=== PATIENT | male | born 1990 | race Two or more races ===

== ENCOUNTER 2019-01-10 12:10 | Emergency (ER) | payer SELFPAY ==
[2019-01-10 12:25] VITALS: BP 135/69
[2019-01-10] MEDS ORDERED: KETOROLAC TROMETHAMINE 60 MG/2 ML SDV IM ONE (12:45)
--- NOTE | 2019-01-10 12:48 | ER Document Report ---
HPI - HPI Time Seen by Provider: 01/10/19 12:39 Pain Level: 5 Notes: Patient is a 28-year-old male who presents complaining of left knee pain that occurred while at work prior to arrival. Patient states that he started feeling a sharp pain when he was going down steps and then was pushing something heavy and had an intense sharp pain. He denies any trauma or other injury. Patient states that since then he has had a sharp pain to the right anterior knee and is worse when he tries to flex his knee. Patient states that his knee feels like it wants to give out on him. Denies drug allergies. No other concerns or complaints. He has not noticed any swelling, redness, or bruising. Denies any headache, fever, URI, sore throat, chest pain, palpitations, syncope, cough, shortness of breath, wheeze, dyspnea, abdominal pain, nausea/vomiting/diarrhea, urinary retention, dysuria, hematuria, loss of control of bowel or bladder, numbness/tingling, saddle anesthesia, muscle paralysis/weakness, or rash. - ROS Systems Reviewed and Negative: Yes All other systems reviewed and negative - CONSTITUTIONAL Constitutional: DENIES: Fever, Chills - MUSCULOSKELETAL Musculoskeletal: REPORTS: Extremity pain - L knee pain Past Medical History - Social History Smoking Status: Current Every Day Smoker Frequency of alcohol use: Social Drug Abuse: None Family History: Reviewed & Not Pertinent Patient has suicidal ideation: No Patient has homicidal ideation: No Renal/ Medical History: Denies: Hx Peritoneal Dialysis Past Surgical History: Reports: Hx Appendectomy, Hx Orthopedic Surgery - R hand Vertical Provider Document - CONSTITUTIONAL Agree With Documented VS: Yes Notes: PHYSICAL EXAMINATION: GENERAL: Well-appearing, well-nourished and in no acute distress. LUNGS: Breath sounds clear to auscultation bilaterally and equal. No wheezes rales or rhonchi. HEART: Regular rate and rhythm without murmurs, rubs, gallops. Musculoskeletal: Lt knee: No obvious swelling, ecchymosis, effusion, or deformity. LROM to passive/active and flexion due to pain. Strength 5+/5. N/V intact distal. + rt joint line tenderness. Ligamentous grossly stable, limited exam. Patellar grind negative. No calf tenderness. Extremities: No cyanosis, clubbing, or edema b/l. Peripheral pulses 2+. Capillary refill less than 3 seconds. Karlo neg b/l. NEUROLOGICAL: Normal speech, limping gait. Normal sensory, motor exams PSYCH: Normal mood, normal affect. SKIN: Warm, Dry, normal turgor, no rashes or lesions noted. - INFECTION CONTROL TRAVEL OUTSIDE OF THE [place] IN LAST 30 DAYS: No Course - Re-evaluation Re-evalutation: 01/10/19 12:[address] Marshall: no imaging warranted at this time. conservative mena ures as below. Patient is an afebrile, well-hydrated, 28-year-old female who presents to the ED with left knee pain which I suspect to have internal involvement, i.e. meniscus. Vitals are acceptable without any significant tachycardia, tachypnea, or hypoxia. PE is otherwise unremarkable for any neurovascular compromise, obvious tendon/ligament rupture, obvious fracture/dislocation, septic joint. Knee immobilizer and crutches were provided today. Toradol given IM. Patient is nontoxic-appearing. Patient is able to ambulate and weight-bear although he is limping. No other labs or imaging warranted at this time based on H&P. Conservative measures otherwise for symptoms. Recheck with your PCM in 3-5 days. Schedule consult with orthopedics. Return to the ED with any worsening/concerning symptoms otherwise as reviewed in discharge. Patient is in agreement. - Vital Signs Vital signs: Temp Pulse Resp BP Pulse Ox 98.1 F 76 20 135/69 H 94 01/10/19 12:23 01/10/19 12:23 01/10/19 12:23 01/10/19 12:23 01/10/19 12:23 Discharge - Discharge Clinical Impression: Left knee pain Qualifiers: Chronicity: acute Qualified Code(s): M25.562 - Pain in left knee Condition: Stable Disposition: HOME, SELF-CARE Instructions: Suspected Internal Knee Injury ([facility]) Additional Instructions: Rest, Ice, Compression, Elevation Tylenol/ibuprofen as needed Light stretches daily Strength exercises as able Moist heat and massage may help F/u with your PCP in 3-5 days for a recheck Call orthopedics today to schedule an appointment for further evaluation and management Return to the ED with any worsening symptoms and/or development of fever, headache, chest pain, palpitations, syncope, shortness of breath, trouble breathing, abdominal pain, n/v/d, muscle weakness/paralysis, numbness/tingling, swelling, redness, or other worsening symptoms that are concerning to you. Prescriptions: Naproxen 500 mg PO BID #20 tablet Forms: Elevated Blood Pressure, Smoking Cessation Education, Return to Work Referrals: [facility] [Provider Group] - Follow up as needed MIKE FARAH MD [ACTIVE PROVISIONAL STAFF] - Follow up in 3-5 days
== END 2019-01-10 13:10 | disposition home or self-care (01) ==
LOC: ER 12:10
DX: M25.562 Pain in left knee (principal); F17.200 Nicotine dependence, unspecified, uncomplicated
CPT/HCPCS: 99283; L1830

== ENCOUNTER 2019-04-23 12:12 | Emergency (ER) | payer SELFPAY ==
[2019-04-23] MEDS ORDERED: LIDOCAINE 1%/EPINEPHRINE INJ 20 ML VIAL INJ ONE (13:01)
[2019-04-23] MEDS ORDERED: SULFAMETHOXAZOLE/TRIMETHOPRIM 800-160 MG TABLET PO ONE (13:02)
[2019-04-23] MEDS ORDERED: HYDROCODONE/ACETAMINOPHEN 5-325 MG TABLET PO ONE (13:02)
[2019-04-23] MEDS ORDERED: CEPHALEXIN 500 MG CAPSULE PO ONE (13:02)
[2019-04-23] MEDS ORDERED: HYDROCODONE/ACETAMINOPHEN 5-325 MG (6 TAB/ER DISP) PO PRN (13:52)
--- NOTE | 2019-04-23 13:52 | ER Document Report ---
ED Skin Rash/Insect Bite/Abscs - General Chief Complaint: Abscess Stated Complaint: ABCESS ON RIGHT LEG Time Seen by Provider: 04/23/19 12:19 Notes: Patient is a 29-year-old male who presents the emergency department with a chief complaint of a possible abscess to his right inner thigh. Patient states that he noticed some redness to the area 3 days ago. Patient denies any fever, body aches, chills, or any other symptoms. Patient denies any past medical history. He does not take any medications. Patient is not diabetic. TRAVEL OUTSIDE OF THE [place] IN LAST 30 DAYS: No - Related Data Allergies/Adverse Reactions: No Known Allergies Allergy (Unverified 01/10/19 12:10) Past Medical History - Social History Smoking Status: Current Every Day Smoker Frequency of alcohol use: Social Drug Abuse: Marijuana Family History: Reviewed & Not Pertinent Patient has suicidal ideation: No Patient has homicidal ideation: No Renal/ Medical History: Denies: Hx Peritoneal Dialysis Past Surgical History: Reports: Hx Appendectomy, Hx Orthopedic Surgery - R hand Review of Systems - Review of Systems Notes: REVIEW OF SYSTEMS: CONSTITUTIONAL : Denies recent illness. Denies recent unintentional weight loss. Denies fever, chills, or sweats. EENT: Denies eye, ear, throat, or mouth pain, discharge, or symptoms. Denies nasal or sinus congestion. CARDIOVASCULAR: Denies chest pain. RESPIRATORY: Denies shortness of breath, cough, congestion, difficulty breathin g, or wheezing. GASTROINTESTINAL: Denies nausea, vomiting, and diarrhea. Denies abdominal pain. Denies constipation. GENITOURINARY: Denies difficulty urinating, burning, blood in urine, urgency or frequency. MUSCULOSKELETAL: Denies neck and back pain. Denies joint pain or swelling. SKIN: See HPI. HEMATOLOGIC : Denies easy bruising or bleeding. LYMPHATIC: Denies swollen, painful, enlarged glands. NEUROLOGICAL: Denies no numbness or tingling denies weakness. Denies headache. Denies altered mental status. Denies alteration in speech. PSYCHIATRIC: Denies stress, anxiety, alteration in sleep patterns, or depression. All other systems reviewed and negative. Physical Exam - Vital signs Vitals: Temp Pulse BP Pulse Ox 98.0 F 85 130/77 H 99 04/23/19 12:17 04/23/19 12:17 04/23/19 12:17 04/23/19 12:17 - Notes Notes: PHYSICAL EXAMINATION: GENERAL: Appears well, healthy, well-nourished, no acute distress. HEAD: Normocephalic, atraumatic. EYES: PERRL, conjunctiva normal, all extraocular movements intact, sclera nonicteric ENT: Moist mucous membranes. NECK: Supple, no noticeable swelling, redness, rash. Normal range of motion. LUNGS: Equal breath sounds bilaterally and clear to auscultation. No wheezes rales or rhonchi. CARDIOVASCULAR: S1-S2, regular rate, regular rhythm. Radial pulses 2+, normal. ABDOMEN: Normoactive bowel sounds. Soft, nontender, no guarding, no rebound tenderness, and no masses palpated. EXTREMITIES: Normal strength and range of motion, no pitting or edema. No cyanosis. NEUROLOGICAL: Moves all extremities upon command. Strength 5/5 in all extremities. PSYCH: Normal mood, normal affect. SKIN: Warm, dry. Abscess noted to right medial thigh with surrounding cellulitis. Normal skin turgor. Course - Re-evaluation Re-evalutation: 04/23/19 Differential diagnosis includes but normal limited to: abscess, dermoid cyst, sebaceous cyst, furnucle, or others. Based on patient's physical exam and history, this is an abscess. It was drained in the ER. Packing was placed. There is surrounding cellulitis. I do not believe the patient has underlying necrotizing fasciitis. Based on patient's physical exam and these factors, they will be treated with antibiotics. Patient is instructed to follow-up with the emergency department in 2 days. Educated the patient about proper dressing changes. Strict follow- up precautions were given. Follow-up precautions were given. Verbal discharge instructions were given to the patient. They verbalized understanding. They are stable for discharge. - Vital Signs Vital signs: Temp Pulse Resp BP Pulse Ox 98.2 F 71 16 147/82 H 98 04/23/19 14:10 04/23/19 14:10 04/23/19 12:18 04/23/19 14:10 04/23/19 14:10 Discharge - Discharge Clinical Impression: Abscess Condition: Stable Disposition: HOME, SELF-CARE Instructions: Cephalexin ([facility]), Oral Narcotic Medication ([facility]), Post Incision and Drainage, Trimethoprim-Sulfa ([facility]) Additional Instructions: You were seen for an abscess that required drainage. Dress the area twice a day and when soiled. Return in 48 hours for a wound recheck. Please take your antibiotics as prescribed. Please return if you develop fever, vomiting, the pain at the site worsens, you notice spreading redness from the area, or you have any other symptoms that are concerning to you. You are also being sent home with a medication called Dodson, medication for pain. You can take 1 tablet every 4-6 hours as needed. Please use the sparingly. Please also take ibuprofen 600 mg every 6 hours for swelling. Prescriptions: Sulfamethoxazole/Trimethoprim [Bactrim 400-80 mg Tablet] 1 each PO BID #14 tablet Cephalexin Monohydrate [Keflex 500 mg Capsule] 500 mg PO QID #28 capsule Forms: Return to Work
[2019-04-23 14:10] VITALS: BP 147/82
== END 2019-04-23 14:11 | disposition home or self-care (01) ==
LOC: ER 12:12
DX: L02.415 Cutaneous abscess of right lower limb (principal); F17.200 Nicotine dependence, unspecified, uncomplicated
CPT/HCPCS: 99283; A6266; J3490

== ENCOUNTER 2019-04-25 13:18 | Emergency (ER) | payer SELFPAY ==
[2019-04-25 13:26] VITALS: BP 144/85
--- NOTE | 2019-04-25 14:33 | ER Document Report ---
HPI - HPI Time Seen by Provider: 04/25/19 13:23 Pain Level: Denies Context: Patient is a 29-year-old male who presents to the emergency department for a wound recheck. I did his I&D to his right inner thigh 2 days ago. Patient denies any fever, body aches, chills, or any other symptoms. Patient states that he is feeling much better now that he had the I&D. Denies any pain. - ROS Systems Reviewed and Negative: Yes All other systems reviewed and negative - CONSTITUTIONAL Constitutional: DENIES: Fever, Chills - REPRODUCTIVE Reproductive: DENIES: : - MUSCULOSKELETAL Musculoskeletal: DENIES: Swelling - DERM Skin Problems: Surgical Incision - right medial thigh from I&D 2 days ago. Past Medical History - Social History Smoking Status: Current Every Day Smoker Frequency of alcohol use: Social Drug Abuse: Marijuana Family History: Reviewed & Not Pertinent Patient has suicidal ideation: No Patient has homicidal ideation: No Renal/ Medical History: Denies: Hx Peritoneal Dialysis Past Surgical History: Reports: Hx Appendectomy, Hx Orthopedic Surgery - R hand Vertical Provider Document - CONSTITUTIONAL Agree With Documented VS: Yes Exam Limitations: No Limitations General Appearance: No Apparent Distress - INFECTION CONTROL TRAVEL OUTSIDE OF THE [place] IN LAST 30 DAYS: No - HEENT HEENT: Atraumatic, Normocephalic, PERRLA - RESPIRATORY Respiratory: No Respiratory Distress - CARDIOVASCULAR Cardiovascular: Regular Rhythm Pulses: Normal: Radial - MUSCULOSKELETAL/EXTREMETIES Musculoskeletal/Extremeties: FROM, No Edema - NEURO Level of Consciousness: Awake, Alert, Appropriate Motor/Sensory: No Motor Deficit, No Sensory Deficit - DERM Integumentary: Warm, Dry, Laceration - surgical incision from 2 days ago Course - Re-evaluation Re-evalutation: 04/25/19 14:32 Packing was removed here in the emergency department by myself. I recovered the wound. The erythema from the cellulitis has improved. No extra packing needed. Patient will continue his antibiotics. Follow-up precautions were given. Verbal discharge instructions were given to the patient. They verbalized understanding. They are stable for discharge. - Vital Signs Vital signs: Temp Pulse Resp BP Pulse Ox 97.8 F 69 18 144/85 H 98 04/25/19 13:24 04/25/19 13:24 04/25/19 13:24 04/25/19 13:24 04/25/19 13:24 Discharge - Discharge Clinical Impression: Encounter for wound re-check Condition: Stable Disposition: HOME, SELF-CARE Additional Instructions: You were seen today in the emergency department for a wound recheck. It is healing well. Please continue your antibiotics. Please keep the area clean and dry. Apply dressings as needed for any drainage. If you have worsening symptoms, develop a fever, or have any symptoms that are worrisome to you, please return to the emergency department. Forms: Return to Work
== END 2019-04-25 14:45 | disposition home or self-care (01) ==
LOC: ER 13:18
DX: L02.416 Cutaneous abscess of left lower limb (principal); F17.200 Nicotine dependence, unspecified, uncomplicated
CPT/HCPCS: 99282

== ENCOUNTER 2019-07-05 10:31 | Emergency (ER) | payer SELFPAY ==
[2019-07-05] MEDS ORDERED: ONDANSETRON HCL INJ/PF 4 MG/2 ML SDV IV ONE (11:11)
[2019-07-05] MEDS ORDERED: NORMAL SALINE 1000 ML 1,000 ML IV ONE (11:11)
[2019-07-05] MEDS ORDERED: KETOROLAC TROMETHAMINE INJ/PF 30 MG/1 ML SDV IV ONE (11:11)
--- NOTE | 2019-07-05 11:12 | ER Document Report ---
ED Medical Screen (RME) - General Chief Complaint: Headache Stated Complaint: HEADACHE,VOMITING,NOSE BLEED Time Seen by Provider: 07/05/19 11:07 TRAVEL OUTSIDE OF THE [place] IN LAST 30 DAYS: No - HPI Notes: 07/05/19 11:23 29-year-old male to the emergency department with complaints of left-sided headache that began this morning. He states that it was pounding headache behind his eye and that he had associated photophobia, phonophobia. He states that he once after the headache began. He states he has a history of migraines and this is similar. He states that his employer wanted him to come to the emergency department to be evaluated. He states the headache is come down some but is still present. He states that he still continues to have nausea. He denies any other focal neurological deficits. He denies any fevers or chills. He does admit that he has nasal congestion and the nasal congestion is chronic for him. I performed a brief medical screening exam on the patient determined that he will need further evaluation by main side provider. I have placed initial orders to help expedite his care. - Related Data Allergies/Adverse Reactions: No Known Allergies Allergy (Verified 07/05/19 11:03) Past Medical History - Social History Chew tobacco use (# tins/day): No Frequency of alcohol use: Occasional Drug Abuse: None Renal/ Medical History: Denies: Hx Peritoneal Dialysis Past Surgical History: Reports: Hx Appendectomy, Hx Orthopedic Surgery - R hand Physical Exam - Vital signs Vitals: Temp Pulse Resp BP Pulse Ox 97.6 F 57 L 16 137/75 H 98 07/05/19 10:34 07/05/19 10:34 07/05/19 10:34 07/05/19 10:34 07/05/19 10:34 Course - Vital Signs Vital signs: Temp Pulse Resp BP Pulse Ox 97.6 F 57 L 16 137/75 H 98 07/05/19 10:34 07/05/19 10:34 07/05/19 10:34 07/05/19 10:34 07/05/19 10:34
--- NOTE | 2019-07-05 12:52 | ER Document Report ---
ED Headache - General Chief Complaint: Headache Stated Complaint: HEADACHE,VOMITING,NOSE BLEED Time Seen by Provider: 07/05/19 11:07 Primary Care Provider: ALEXI MCKINNEY MD [EMERITUS] - Follow up in 1 week TRAVEL OUTSIDE OF THE [place] IN LAST 30 DAYS: No - HPI Notes: 29-year-old male to the emergency department with complaints of left-sided headache that started today while at work with associated photophobia and phonophobia. He has also had episodes of nausea and vomiting since the headache started. He states that he is gotten a headache like this before. He was at work when it started and his boss made him leaving come here for further evaluation. He has not taken anything for this headache. He states usually when this happens he drinks a lot of water will turn off the lights and rest until goes away. He has not seen a headache specialist for this. He denies any neck pain, fevers, chills, cough, chest pain, shortness of breath. He denies any focal neurological weakness. He denies any speech problems. This is not the worst headache of his life. - Related Data Allergies/Adverse Reactions: No Known Allergies Allergy (Verified 07/05/19 11:03) Past Medical History - Social History Smoking Status: Current Every Day Smoker Chew tobacco use (# tins/day): No Frequency of alcohol use: Occasional Drug Abuse: None Family History: Reviewed & Not Pertinent Patient has suicidal ideation: No Patient has homicidal ideation: No Renal/ Medical History: Denies: Hx Peritoneal Dialysis Past Surgical History: Reports: Hx Appendectomy, Hx Orthopedic Surgery - R hand Review of Systems - Review of Systems Constitutional: denies: Chills, Fever EENT: Other - + photophobia Cardiovascular: denies: Chest pain, Palpitations, Dizziness, Lightheaded Gastrointestinal: denies: Abdominal pain, Diarrhea, Nausea, Vomiting Genitourinary: No symptoms reported Musculoskeletal: No symptoms reported. denies: Neck pain Skin: No symptoms reported Neurological/Psychological: Headaches. denies: Weakness, Gait changes, Lost consciousness, Speech impairment, Numbness, Tingling -: Yes All other systems reviewed and negative Physical Exam - Vital signs Vitals: Temp Pulse Resp BP Pulse Ox 97.6 F 57 L 16 137/75 H 98 07/05/19 10:34 07/05/19 10:34 07/05/19 10:34 07/05/19 10:34 07/05/19 10:34 Interpretation: Normal - General General appearance: Appears well, Alert - HEENT Head: Normocephalic, Atraumatic Eyes: Normal Pupils: PERRL Fundascopic: Normal Ears: Normal External canal: Normal Tympanic membrane: Normal Sinus: Normal Nasal: Normal Mouth/Lips: Normal Mucous membranes: Normal Pharynx: Normal. No: Uvular edema, Potential airway comprom. Neck: Normal, Supple. No: Lymphadenopathy, Meningismus - Respiratory Respiratory status: No respiratory distress Chest status: Nontender Breath sounds: Normal. No: Rales, Rhonchi, Wheezing Chest palpation: Normal - Cardiovascular Rhythm: Regular Heart sounds: Normal auscultation Murmur: No - Abdominal Inspection: Normal Distension: No distension Bowel sounds: Normal Tenderness: Nontender. No: Tender, McBurney's point, Torrez's sign, Guarding, Rebound Organomegaly: No organomegaly - Back Back: Normal, Nontender - Neurological Neuro grossly intact: Yes Cognition: Normal Orientation: AAOx4 [place] Coma Scale Eye Opening: Spontaneous [place] Coma Scale Verbal: Oriented [place] Coma Scale Motor: Obeys Commands [place] Coma Scale Total: 15 Speech: Normal Cranial nerves: Normal. No: Facial palsy, Forehead sparing, Gaze palsy, Sensory deficit, Tongue deviation Cerebellar coordination: Normal. 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 No: Pronator drift Sensory: Normal - Psychological Associated symptoms: Normal affect, Normal mood - Skin Skin Temperature: Warm Skin Moisture: Dry Skin Color: Normal Course - Re-evaluation Re-evalutation: Impression: Headache. Patient is much better after fluids and medicine. He states his headache is completely gone. Will discharge home. Encouraged to follow-up with neurologist for headache specialist. Patient agrees with the plan. Gave strict return precautions. - Vital Signs Vital signs: Temp Pulse Resp BP Pulse Ox 97.7 F 50 L 18 132/75 H 99 07/05/19 13:06 07/05/19 13:06 07/05/19 13:06 07/05/19 13:06 07/05/19 13:06 Discharge - Discharge Clinical Impression: Headache Qualifiers: Headache type: unspecified Headache chronicity pattern: acute headache Intractability: not intractable Qualified Code(s): R51 - Headache Nausea & vomiting Qualifiers: Vomiting type: unspecified Vomiting Intractability: non-intractable Qualified Code(s): R11.2 - Nausea with vomiting, unspecified Condition: Stable Disposition: HOME, SELF-CARE Instructions: Headache ([facility]) Additional Instructions: Push fluids. Return if worsening symptoms. Follow-up with neurologist. Take medicine as prescribed. Prescriptions: Ondansetron [Zofran Odt 4 mg Tablet] 1 - 2 tab PO Q4HP PRN #10 tab.rapdis PRN Reason: Butalb/Acetaminophen/Caffeine [Fioricet (50-325-40 mg) Tablet] 1 tab PO Q6H PRN #15 tab PRN Reason: Forms: Return to Work Referrals: ALEXI MCKINNEY MD [EMERITUS] - Follow up in 1 week
[2019-07-05 13:10] VITALS: BP 132/75
== END 2019-07-05 13:06 | disposition home or self-care (01) ==
LOC: ER 10:31
DX: R51 Headache (principal); R11.2 Nausea with vomiting, unspecified; H53.149 Visual discomfort, unspecified; F17.200 Nicotine dependence, unspecified, uncomplicated
CPT/HCPCS: 99283; 96361; 96374; 96375; J1885; J2405; J7030

== ENCOUNTER 2019-11-05 19:12 | Emergency (ER) | payer SELFPAY ==
[2019-11-05] MEDS ORDERED: KETOROLAC TROMETHAMINE 60 MG/2 ML SDV IM ONE (19:26)
--- NOTE | 2019-11-05 19:28 | ER Document Report ---
ED Medical Screen (RME) - General Stated Complaint: FALL/PAIN OF TAILBONE Time Seen by Provider: 11/05/19 19:23 Mode of Arrival: Wheelchair Information source: Patient Notes: Patient is an otherwise healthy 29-year-old male presenting to the emergency department chief complaint of low back pain. Patient reports 3 days ago he fell backwards striking his tailbone against the wall corner. He states he has pain but it has worsened over the last 24 hours. He denies any other illness but has a fever of 101 in the triage area. He denies any saddle anesthesia, loss of control of bowel or bladder, and denies any urinary retention. Patient reports he is unable to perform ADLs. Tenderness to palpation along the midline in the lumbar region radiating over to the left side. I have greeted and performed a rapid initial assessment of this patient. A comprehensive ED assessment and evaluation of the patient, analysis of test results and completion of the medical decision making process will be conducted by additional ED providers. I have specifically instructed the patient or family members with the patient to immediately return to any nursing staff should anything change in the patient's condition or with their chief complaint. TRAVEL OUTSIDE OF THE [place] IN LAST 30 DAYS: No - Related Data Allergies/Adverse Reactions: No Known Allergies Allergy (Verified 07/05/19 11:03) Past Medical History Renal/ Medical History: Denies: Hx Peritoneal Dialysis Past Surgical History: Reports: Hx Appendectomy, Hx Orthopedic Surgery - R hand
--- NOTE | 2019-11-05 20:07 | ER Document Report ---
ED Fall - General Chief Complaint: Fall Stated Complaint: FALL/PAIN OF TAILBONE Time Seen by Provider: 11/05/19 19:23 Mode of Arrival: Wheelchair Information source: Patient TRAVEL OUTSIDE OF THE [place] IN LAST 30 DAYS: No - HPI Notes: Patient states that approximately 3 days ago he was carrying a couch and walking backwards. He states he tripped and fell and hit his tailbone on the corner. Since that time he has had progressively increasing severe pain in the tailbone. It is worse with movement and better with rest. It is constant. He denies any other injuries in the fall. It is a sharp pain that radiates up his back. No problems with urination or defecation other than pain. - Related data Allergies/Adverse Reactions: No Known Allergies Allergy (Verified 07/05/19 11:03) Past Medical History - General Information source: Patient - Social History Smoking Status: Current Every Day Smoker Frequency of alcohol use: None Drug Abuse: Marijuana Family History: Reviewed & Not Pertinent Patient has homicidal ideation: No Renal/ Medical History: Denies: Hx Peritoneal Dialysis Past Surgical History: Reports: Hx Appendectomy, Hx Orthopedic Surgery - R hand Review of Systems - Review of Systems Constitutional: denies: Chills, Fever Cardiovascular: denies: Chest pain, Palpitations Respiratory: denies: Cough, Short of breath -: Yes All other systems reviewed and negative Physical Exam - Vital signs Vitals: Temp Pulse Resp BP Pulse Ox 101 F H 86 18 137/72 H 98 11/05/19 19:21 11/05/19 19:21 11/05/19 19:21 11/05/19 19:21 11/05/19 19:21 Interpretation: Normal - General General appearance: Appears well, Alert - HEENT Head: Normocephalic, Atraumatic Eyes: Normal Pupils: PERRL - Respiratory Respiratory status: No respiratory distress Chest status: Nontender Breath sounds: Normal Chest palpation: Normal - Cardiovascular Rhythm: Regular Heart sounds: Normal auscultation Murmur: No - Abdominal Inspection: Normal Distension: No distension Bowel sounds: Normal Tenderness: Nontender Organomegaly: No organomegaly - Back Back: Normal, Tender - Patient has exquisite tenderness over the coccyx. - Extremities General upper extremity: Normal inspection, Nontender, Normal color, Normal ROM, Normal temperature General lower extremity: Normal inspection, Nontender, Normal color, Normal ROM, Normal temperature, Normal weight bearing. No: Karlo's sign - Neurological Neuro grossly intact: Yes Cognition: Normal Orientation: AAOx4 [place] Coma Scale Eye Opening: Spontaneous [place] Coma Scale Verbal: Oriented [place] Coma Scale Motor: Obeys Commands [place] Coma Scale Total: 15 Speech: Normal Motor strength normal: LUE, RUE, LLE, RLE Sensory: Normal - Psychological Associated symptoms: Normal affect, Normal mood - Skin Skin Temperature: Warm Skin Moisture: Dry Skin Color: Normal Course - Re-evaluation Re-evalutation: 11/05/19 22:20 Patient initially presented for complaints of tailbone pain. It was noticed at triage that his fever was 101. However patient has no known covert exposures. He has had no symptoms of illness. He denies any type of pain anywhere. He says he has had no cough or shortness of breath and he has not felt that he has had a fever. I then recheck the patient's temperature and it was 99.3. I think the first temperature was erroneous. As for patient's tailbone pain he does appear to have a minor nondisplaced fracture of the coccyx. I will discharge patient home with pain medicine and instructions about using a doughnut. - Vital Signs Vital signs: Temp Pulse Resp BP Pulse Ox 99.3 F 86 18 137/72 H 98 11/05/19 20:10 11/05/19 19:21 11/05/19 19:21 11/05/19 19:21 11/05/19 19:21 - Diagnostic Test Radiology reviewed: Image reviewed, Reports reviewed Discharge - Discharge Clinical Impression: Coccyx contusion Qualifiers: Encounter type: initial encounter Qualified Code(s): S30.0XXA - Contusion of lower back and pelvis, initial encounter Condition: Stable Disposition: HOME, SELF-CARE Instructions: Coccyx Injury ([facility]) Additional Instructions: buy a doughnut at the pharmacy to sit on Prescriptions: Hydrocodone/Acetaminophen [[facility] 5-325 mg Tablet] 1 tab PO Q6 PRN 3 Days #12 tablet PRN Reason: Forms: Return to Work Referrals: MIKE FARAH MD [ACTIVE PROVISIONAL STAFF] - Follow up as needed
--- NOTE | 2019-11-05 20:19 | RADIOLOGY REPORT (SQ) ---
CT LUMBAR SPINE WITHOUT IV CONTRAST HISTORY: Low back pain/fever s/p fall . COMPARISON: None. TECHNIQUE: CT scan of the lumbar spine was performed without IV contrast. This exam was performed according to our departmental dose-optimization program, which includes automated exposure control, adjustment of the mA and/or kV according to patient size and/or use of iterative reconstruction technique. FINDINGS: No acute compression fracture is seen. The lumbar alignment is maintained. The disc spaces are preserved. No advanced canal stenosis is identified. The sacroiliac joints are intact. IMPRESSION: No acute findings in the lumbar spine.
--- NOTE | 2019-11-05 22:21 | RADIOLOGY REPORT (SQ) ---
EXAM DESCRIPTION: XR SACRUM COCCYX 2 OR MORE VIEWS COMPLETED DATE/TME: 11/05/2019 20:55 CLINICAL HISTORY: 29 years, Male, fall/pain COMPARISON: None. NUMBER OF VIEWS: TECHNIQUE: LIMITATIONS: None. FINDINGS: No fracture or dislocation. Mineralization of bone appears normal. IMPRESSION: No fracture or dislocation. copyright 2010 [employer]- All Rights Reserved
[2019-11-05 22:48] VITALS: BP 126/78
== END 2019-11-05 22:48 | disposition home or self-care (01) ==
LOC: ER 19:12
DX: S30.0XXA Contusion of lower back and pelvis, initial encounter (principal); W19.XXXA Unspecified fall, initial encounter; Y93.89 Activity, other specified; F17.200 Nicotine dependence, unspecified, uncomplicated; F12.10 Cannabis abuse, uncomplicated
CPT/HCPCS: 99284; 96372; 72220; 72131; J1885

== ENCOUNTER 2020-01-31 00:37 | Emergency (ER) | payer SELFPAY ==
[2020-01-31] MEDS ORDERED: NORMAL SALINE 1000 ML 1,000 ML IV ONE (06:26)
[2020-01-31] MEDS ORDERED: ONDANSETRON 4 MG TAB.RAPDIS PO ONE (06:26)
[2020-01-31] MEDS ORDERED: KETOROLAC TROMETHAMINE INJ/PF 30 MG/1 ML SDV IV ONE (06:26)
--- NOTE | 2020-01-31 07:01 | ER Document Report ---
ED General - General Chief Complaint: Headache Stated Complaint: HEADACHE,NAUSEA Time Seen by Provider: 01/31/20 05:59 Mode of Arrival: Ambulatory Information source: Patient TRAVEL OUTSIDE OF THE [place] IN LAST 30 DAYS: No - HPI Notes: Patient presents with headache. He states that when he went to bed last night he felt fine. He states he woke up approximately at midnight with bilateral throbbing temporal pain. The pain radiated throughout his head. Nothing made it better or worse. It was constant. He states when he arrived here he had an episode of vomiting and now he feels significantly better although he still has some mild pain. He states he is had some mild congestion but no real cough or cold. No diarrhea. No rashes. No known tick bites. No known covert virus exposures. 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 He denies any history of similar previous episodes. - Related Data Allergies/Adverse Reactions: No Known Allergies Allergy (Verified 07/05/19 11:03) Past Medical History - General Information source: Patient - Social History Smoking Status: Current Every Day Smoker Chew tobacco use (# tins/day): No Frequency of alcohol use: Occasional Drug Abuse: None Family History: Reviewed & Not Pertinent Renal/ Medical History: Denies: Hx Peritoneal Dialysis Past Surgical History: Reports: Hx Appendectomy, Hx Orthopedic Surgery - R hand Review of Systems - Review of Systems Constitutional: denies: Diaphoresis, Recent illness Cardiovascular: denies: Chest pain, Palpitations Respiratory: denies: Cough, Short of breath -: Yes All other systems reviewed and negative Physical Exam - Vital signs Vitals: Temp Pulse Resp BP Pulse Ox 97.9 F 60 18 148/85 H 98 01/31/20 02:04 01/31/20 02:04 01/31/20 02:04 01/31/20 02:04 01/31/20 02:04 Interpretation: Hypertensive - General General appearance: Appears well, Alert - HEENT Head: Normocephalic, Atraumatic Eyes: Normal Pupils: PERRL - Respiratory Respiratory status: No respiratory distress Chest status: Nontender Breath sounds: Normal Chest palpation: Normal - Cardiovascular Rhythm: Regular Heart sounds: Normal auscultation Murmur: No - Abdominal Inspection: Normal Distension: No distension Bowel sounds: Normal Tenderness: Nontender Organomegaly: No organomegaly - Back Back: Normal, Nontender - Extremities General upper extremity: Normal inspection, Nontender, Normal color, Normal ROM, Normal temperature General lower extremity: Normal inspection, Nontender, Normal color, Normal ROM, Normal temperature, Normal weight bearing. No: Karlo's sign - Neurological Neuro grossly intact: Yes Cognition: Normal Orientation: AAOx4 [place] Coma Scale Eye Opening: Spontaneous [place] Coma Scale Verbal: Oriented [place] Coma Scale Motor: Obeys Commands [place] Coma Scale Total: 15 Speech: Normal Cranial nerves: Normal. No: Facial palsy, Gaze palsy Cerebellar coordination: Normal. 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 No: Pronator drift Sensory: Normal - Psychological Associated symptoms: Normal affect, Normal mood - Skin Skin Temperature: Warm Skin Moisture: Dry Skin Color: Normal Course - Re-evaluation Re-evalutation: 01/31/20 08:57 Patient presented with a headache that woke him from sleep. He states after he vomited he feels better. He has no meningeal signs. The head CT is unremarkable. Would seem unlikely given the symptoms that he told me that this would be a manifestation of a sentinel hemorrhage. Possibly patient has a tickborne disease and he has been tested for this. He may also have COVID and t his is been tested as well. I will recommend the patient that he is quarantined until results of his testing have returned. At this time patient has no deficits stable vital signs and I believe station is stable for discharge. - Vital Signs Vital signs: Temp Pulse Resp BP Pulse Ox 98.0 F 61 14 112/86 H 100 01/31/20 06:00 01/31/20 04:50 01/31/20 09:01 01/31/20 09:01 01/31/20 09:01 - Laboratory Result Diagrams: 01/31/20 06:35 01/31/20 06:35 Laboratory results interpreted by me: 01/31/20 06:35 Glucose 118 H ALT 81 H - Diagnostic Test Radiology reviewed: Image reviewed, Reports reviewed Discharge - Discharge Clinical Impression: Headache Qualifiers: Headache type: unspecified Headache chronicity pattern: acute headache Intractability: not intractable Qualified Code(s): R51 - Headache Condition: Stable Disposition: HOME, SELF-CARE Instructions: Headache ([facility]), Pain Medication Injection ([facility]), Antinausea Medication ([facility]), COVID-19 Guidance for Persons Under Investigation Additional Instructions: Please call your primary care physician as soon as possible to arrange follow- up. Please quarantine until the results of your COVID test have returned in 2 to 3 days. Prescriptions: Butalb/Acetaminophen/Caffeine [Fioricet 50-300-40 mg Capsule] 1 cap PO Q6 PRN 3 Days #12 cap PRN Reason: For Pain Ondansetron [Zofran Odt 4 mg Tablet] 1 - 2 tab PO Q4H PRN #15 tab.rapdis PRN Reason: For Nausea/Vomiting Forms: Return to Work Referrals: [facility] [Provider Group] - Follow up in 3-5 days
[2020-01-31 07:35] LABS: ALBUMIN 4.9 g/dL (3.5-5.0); ALKALINE PHOSPHATASE 45 U/L (38-126); ANION GAP 8 (5-19); ASPARTATE AMINO TRANSFERASE 48 U/L (17-59); BILIRUBIN,DIRECT 0.2 mg/dL (0.0-0.4); BILIRUBIN,TOTAL 0.7 mg/dL (0.2-1.3); BLOOD UREA NITROGEN 17 mg/dL (7-20); CALCIUM 9.9 mg/dL (8.4-10.2); CARBON DIOXIDE 26 mmol/L (22-30); CHLORIDE 106 mmol/L (98-107); GLUCOSE 118 mg/dL (75-110); POTASSIUM 4.5 mmol/L (3.6-5.0); TOTAL PROTEIN 7.5 g/dL (6.3-8.2)
[2020-01-31 07:56] LABS: ABSOLUTE EOSINOPHILS # (AUTO) 0.3 10^3/uL (0.0-0.6); ABSOLUTE LYMPHOCYTES (AUTO) 1.7 10^3/uL (0.5-4.7); ABSOLUTE MONOCYTES (AUTO) 0.5 10^3/uL (0.1-1.4); ABSOLUTE NEUT (AUTO) 3.8 10^3/uL (1.7-8.2); BASOPHILS % (AUTO) 0.6 % (0-2); EOSINOPHILS % (AUTO) 4.1 % (0-6); HEMATOCRIT 46.6 % (37.9-51.0); HEMOGLOBIN 16.1 g/dL (13.5-17.0); LYMPHOCYTES % (AUTO) 27.1 % (13-45); MEAN CORPUSCULAR HEMOGLOBIN 29.7 pg (27.0-33.4); MEAN CORPUSCULAR HGB CONC 34.6 g/dL (32.0-36.0); MEAN CORPUSCULAR VOLUME 86 fl (80-97); MONOCYTES % (AUTO) 8.2 % (3-13); PLATELET COUNT 181 10^3/uL (150-450); RED BLOOD COUNT 5.42 10^6/uL (4.35-5.55); RED CELL DISTRIBUTION WIDTH 13.8 % (11.5-14.0); TOTAL CELLS COUNTED % (AUTO) 100 %; WHITE BLOOD COUNT 6.3 10^3/uL (4.0-10.5)
--- NOTE | 2020-01-31 08:19 | RADIOLOGY REPORT (SQ) ---
EXAM DESCRIPTION: CT HEAD WITHOUT IMAGES COMPLETED DATE/TIME: 01/31/2020 8:11 am REASON FOR STUDY: huerta COMPARISON: None. TECHNIQUE: Axial images acquired through the brain without intravenous contrast. Images reviewed wi th bone, brain and subdural windows. Additional sagittal and coronal reconstructions were generated. Images stored on PACS. All CT scanners at this facility use dose modulation, iterative reconstruction, and/or weight based d osing when appropriate to reduce radiation dose to as low as reasonably achievable (ALARA). [facility]: Dose Right [facility]: CareDose [facility]: Dose Right [facility]: Teradose 4D [facility]: [employer] RADIATION DOSE: CT Rad equipment meets quality standard of care and radiation dose reduction techniq ues were employed. CTDIvol: 53.2 mGy. DLP: 1017 mGy-cm. mGy. LIMITATIONS: None. FINDINGS: VENTRICLES: Normal size and contour. CEREBRUM: No masses. No hemorrhage. No midline shift. No evidence for acute infarction. Normal gra y/white matter differentiation. No areas of low density in the white matter. CEREBELLUM: No masses. No hemorrhage. No alteration of density. No evidence for acute infarction. EXTRAAXIAL SPACES: No fluid collections. No masses. ORBITS AND GLOBE: No intra- or extraconal masses. Normal contour of globe without masses. CALVARIUM: No fracture. PARANASAL SINUSES: No fluid or mucosal thickening. SOFT TISSUES: No mass or hematoma. OTHER: No other significant finding. IMPRESSION: NORMAL BRAIN CT WITHOUT CONTRAST. EVIDENCE OF ACUTE STROKE: NO. COMMENT: Quality ID # [id number]: Final reports with documentation of one or more dose reduction techniques (e.g., Automated exposure control, adjustment of the mA and/or kV according to patient size, use of iterative reconstruction technique) TECHNICAL DOCUMENTATION: JOB ID: [id number] 2010 [employer]- All Rights Reserved Reading location - IP/workstation name: [email or web address]
--- NOTE | 2020-01-31 10:45 | RADIOLOGY REPORT (SQ) ---
EXAM DESCRIPTION: CTA HEAD IMAGES COMPLETED DATE/TIME: 01/31/2020 10:36 am REASON FOR STUDY: huerta COMPARISON: None. TECHNIQUE: Post IV contrast scanning, thin section axial imaging through the brain to evaluate the a rterial structures. Source and MIP images are saved and reviewed on PACS. Advanced 3D imaging as volume-rendering, MIPs, SSD performed? yes All CT scanners at this facility use dose modulation, iterative reconstruction, and/or weight based d osing when appropriate to reduce radiation dose to as low as reasonably achievable (ALARA). [facility]: Dose Right [facility]: CareDose [facility]: Dose Right [facility]: Teradose 4D [facility]: Flynn CONTRAST TYPE AND DOSE: contrast/concentration: Isovue 350.00 mmol/ml; Total Contrast Delivered: 70. 0 ml; Total Saline Delivered: 75.0 ml RENAL FUNCTION: GFR > 60. LIMITATIONS: None. FINDINGS: [place]: The anterior, middle, posterior cerebral arteries are all patent. No ev idence of aneurysm or focal stenosis. POSTERIOR CIRCULATION: The distal vertebral arteries are patent as is the basilar artery. No aneurysm . BRAIN: Normal. BONES: Intact as visualized. SINUSES: No fluid or mucosal thickening. OTHER: No other significant finding. IMPRESSION: NO CTA EVIDENCE OF STENOSIS OR ANEURYSM OF THE [place]. TECHNICAL DOCUMENTATION: JOB ID: [id number] Quality ID # [id number]: Final reports with documentation of one or more dose reduction techniques (e.g., Au tomated exposure control, adjustment of the mA and/or kV according to patient size, use of iterative reconstruction technique) 2010 [employer]- All Rights Reserved Reading location - IP/workstation name: [email or web address]
[2020-01-31 11:26] VITALS: BP 133/83
== END 2020-01-31 11:26 | disposition home or self-care (01) ==
LOC: ER 00:37
DX: R51 Headache (principal); R11.0 Nausea; R09.81 Nasal congestion; F17.200 Nicotine dependence, unspecified, uncomplicated; Z20.828 Contact with and (suspected) exposure to other viral communicable diseases
CPT/HCPCS: 99285; 96361; 96374; 36415; 85025; 87635; 80053; 86757; 70450; 70496; S0119; J1885; J7030; C9803